=== PATIENT | female | born 1930 | race Caucasian/White ===

== ENCOUNTER 2016-05-06 20:15 | Emergency (ER) | payer MEDICARE, OTHER ==
[~2016-05-06 20:15] MED LIST: ADVAIR DIS1 PUFF/DO1 IH; ATROVENT NASAL30 ML MS; COLCRYS0.6 MG PO; IMDUR DPS30 MG PO; LASIX DPS20 MG PO; NASACORT AQ D16.5 GM NS; NORVASC5 MG PO; PROAIR HFA8.5 GM IH; PROTONIX40 MG PO; THERA1 EACH PO; TOPROL XL DPS25 MG PO; XANAX DPS0.5 MG PO; ZOCOR DPS40 MG PO; ZYLOPRIM-DPS300 MG PO
--- NOTE | 2016-05-08 00:39 | ER ---
ADMIT: 05/06/2016 RM/LOC: ER [facility] MR#: [id number] [facility] [address] [place], [place] [id number] BENITA CORREIA [address] [place] [address] Emergency Room Report SEX: F AGE: 85 : 1930 DATE: 05/06/2016 TIME: 2014 Please refer to my T-sheet for complete H and P. HISTORY OF PRESENT ILLNESS: Briefly, the patient is an 85-year-old who comes in. She was at home. She tripped over at workout bike, fell on to the carpet. She has a large skin tear on her right arm, she is on a blood thinner. She had her INR checked recently. No other injury. Did not hurt herself. She was up and walking. She came in by private vehicle. PHYSICAL EXAMINATION: VITAL SIGNS: Her blood pressure is 192/77 pulse 94, respirations 18, temp 97.2, saturating 97%. GENERAL: No acute distress. HEENT: Grossly normal. LUNGS: Clear. HEART: Irregularly irregular, no murmur. ABDOMEN: Soft. EXTREMITIES: She has a small contusion to her right knee, otherwise no bony prominence tenderness. She has a large skin tear involving her forearm and upper arm, total centimeters is about 24. She is neurovascularly intact distally. EMERGENCY DEPARTMENT COURSE: We cleansed the area with saline wash. I approximated using Dermabond, patient tolerated well. We covered, she is ready for discharge. ASSESSMENT: 1. Right arm skin tear, 24 cm, closed in the emergency department with Dermabond. 2. Fall. 3. Anticoagulated. PLAN: Hold Coumadin tomorrow. Keep clean. Return if problems. Use Tylenol and fall precautions. Matt Norton MD/ caleb JOB #: [id number] CC: Matt Norton MD, Attending Physician Perico Royal MD, Family Physician
== END 2016-05-06 21:00 | disposition home or self-care (01) ==
LOC: ER 20:15
PROC: 0HQBXZZ Repair Right Upper Arm Skin, External Approach (ICD-10-PCS; principal; 2016-05-06)
DX: S51.811A Laceration without foreign body of right forearm, initial encounter (principal); E11.9 Type 2 diabetes mellitus without complications; Z23 Encounter for immunization; W18.09XA Striking against other object with subsequent fall, initial encounter; Y92.009 Unspecified place in unspecified non-institutional (private) residence as the place of occurrence of the external cause